=== PATIENT | female | born 1960 | race Caucasian/White ===

== ENCOUNTER 2018-08-16 20:45 | Emergency (ER) | payer BC ==
[2018-08-16 21:04] VITALS: BP 131/74
[2018-08-16] MEDS ORDERED: Lidocaine 2% W/EPI 1:100,000* 20 ML MDV INJ ONE (21:06)
--- NOTE | 2018-08-16 21:33 | UC ---
Laceration HPI - HPI Summary HPI Summary: Was slicing onions this evening and cut left 5th finger. Will not stop bleeding. - History Of Current Complaint Chief Complaint: UCLaceration Stated Complaint: LACERATION LEFT PINKY Time Seen by Provider: 08/16/18 20:58 Hx Obtained From: Patient Laceration Location: Finger - left 5th Mechanism Of Injury: Sharp Trauma Onset/Duration: Sudden Onset Severity: Mild Pain Intensity: 1 Hands: 1 - 0.6 cm laceration Related History: Dominant Hand Right - Allergies/Home Medications Allergies/Adverse Reactions: Allergies Allergy/AdvReac Type Severity Reaction Status Date / Time codeine Allergy Unknown Verified 05/21/18 12:48 Reaction Details PMH/Surg Hx/FS Hx/Imm Hx Endocrine History: Dyslipidemia GI/ History: Gastroesophageal Reflux Psychological History: Anxiety - Surgical History Surgical History: None - Family History Known Family History: Positive: Hypertension - Social History Occupation: Employed Full-time Lives: With Family Alcohol Use: None Substance Use Type: None Smoking Status (MU): Never Smoked Tobacco - Immunization History Most Recent Tetanus Shot: 03/2018 Review of Systems All Other Systems Reviewed And Are Negative: Yes Skin: Positive: Other - laceration Physical Exam Triage Information Reviewed: Yes Appearance: Well-Appearing, No Pain Distress, Well-Nourished Vital Signs: Initial Vital Signs Temp 97.4 F 08/16/18 20:58 Pulse 72 08/16/18 20:58 Resp 16 08/16/18 20:58 BP 131/74 08/16/18 20:58 Pulse Ox 99 08/16/18 20:58 Vital Signs Reviewed: Yes Eyes: Positive: Conjunctiva Clear Neck exam: Normal Respiratory Exam: Normal Cardiovascular Exam: Normal Musculoskeletal Exam: Normal Neurological Exam: Normal Psychological Exam: Normal Skin Exam: Normal Laceration Repair - Laceration Repair 1 Description: Linear Laceration Size After Repair: Length (cm) - 0.6 cm Modified For Repair: No Type Injection: Local Anesthesia Used: 2.0% Lido Additive Used (in ml): Epi Cleansing Completed Via Routine Prep: Yes Irrigation With Pressure Irrigation Device: Yes Closure Material: Sutures Closure Method: Single Layer Suture Of: Skin - #2 figure of 8 Suture Type: Nylon - 4-0 Laceration Course/Dx - Differential Dx - Laceration/Wound Differental Diagnoses: Abrasion, Avulsion, Dehiscence, Laceration - Diagnosis Provider Diagnosis: Laceration of left little finger Discharge - Sign-Out/Discharge Documenting (check all that apply): Patient Departure All imaging exams completed and their final reports reviewed: No Studies - Discharge Plan Condition: Stable Disposition: HOME Patient Education Materials: Care For Your Stitches (ED) Referrals: Ramses Parra DO [Primary Care Provider] - If Needed (10 days for suture removal here or at your doctors) - Billing Disposition and Condition Condition: STABLE Disposition: Home
== END 2018-08-16 21:44 | disposition home or self-care (01) ==
LOC: UCCORT 20:45
DX: S61.217A Laceration without foreign body of left little finger without damage to nail, initial encounter (principal); Z88.5 Allergy status to narcotic agent; W45.8XXA Other foreign body or object entering through skin, initial encounter; Y93.89 Activity, other specified; Y92.9 Unspecified place or not applicable
CPT/HCPCS: 12001; 99211; G0463

== ENCOUNTER 2019-09-16 14:13 | Emergency (ER) | payer BC ==
--- OUTSIDE RECORDS SUMMARY | 2019-09-16 14:31 | XMS REPORT | Continuity of Care Document ---
:1960 External Reference #:[id number] Author Name Anita Rodgers MD Address [address] [place] [id number] Care Team Providers Name Role Phone [facility] Care Team Information Cooperative Extension Agent Problems Active Problems Provider Date Hyperlipidemia Ramses Parra DO Onset: 11/05/2013 Irritable bowel syndrome Ramses Parra DO Onset: 11/05/2013 Gastroesophageal reflux disease Ramses Parra DO Onset: 11/05/2013 Generalized anxiety disorder Tulio Ruiz MD Onset: 04/05/2005 Palpitations Amy Del Valle PA Onset: 04/05/2005 Tobacco user Tulio Ruiz MD Onset: 04/05/2005 Iron deficiency anemia Tulio Ruiz MD Onset: 04/05/2005 Allergic asthma without status asthmaticus Tulio Ruiz MD Onset: 2004 Social History Type Date Description Comments Sex Unknown Tobacco Use Start: Unknown End: Former Cigarette Smoker Unknown ETOH Use Consumes 3 glasses of wine per week Tobacco Use Start: Unknown End: Patient is a former smoker Unknown Smoking Status Reviewed: 05/13/18 Patient is a former smoker Exercise Type/Frequency Exercises regularly Allergies, Adverse Reactions, Alerts Active Allergies Reaction Severity Comments Date Codeine Upset Stomach 12/18/2013 Medications Active Medications SIG Qnty Indications Ordering Date Provider Naproxen Sodium 1-2 twice daily R07.89 Anita Rodgers, 08/31/2019 220mg for 5 days then as MD Tablets needed Pravastatin Sodium take one tablet by 90tabs Ramses Parra, 03/02/2019 40mg mouth at bedtime DO Tablets Lorazepam 1 by mouth up to 30tabs Ramses Parra, 04/22/2017 0.5mg Tablets twice a day as DO needed anxiety Pantoprazole Sodium 1 by mouth bid 60tabs K21.9 Ramses Parra, 04/17/[address] Silva insert 1 tablet 8tabs Ramses Parra, 03/21/2016 10mcg Tablets vaginally 2x a DO week Ventolin HFA 2 puffs every 4 1units Ramses Parra, 11/24/2015 hours as needed DO 108(90Base) mcg/Act Aerosol Sertraline HCL 1 1/2 by mouth 45tabs Ramses Parra, 07/31/2012 50mg every day DO Tablets Immunizations CPT Code Status Date Vaccine Reaction Lot # [id number] Given 05/08/2018 Flu Vaccine NOS 02129 Given 03/20/2018 Tdap (Adacel) Ages 7 And Im inj completed, Pt [id number] Above Only tolerated well 27211 Given 04/14/2007 Afluria Or Fluvirin Flu Vac Intramuscular 53205 Refused 08/31/2019 Influenza Virus Vaccine,Quadrivalent,Split,Preserv Free, 0.5mL,Im Vital Signs Date Vital Result Comment 08/31/2019 1:07pm Body Temperature 99.1 F Weight 160.00 lb Heart Rate 88 /min BP Systolic 150 mmHg BP Diastolic 90 mmHg Respiratory Rate 18 /min Height 63.5 inches 5'3.50" O2 % BldC Oximetry 98 % Ra BMI (Body Mass Index) 27.9 kg/m2 04/28/2019 10:49am Weight 167.00 lb Heart Rate 70 /min BP Systolic 120 mmHg BP Diastolic 72 mmHg Respiratory Rate 18 /min Height 63.5 inches 5'3.50" BMI (Body Mass Index) 29.1 kg/m2 Results Description No Information Available Procedures Date Code Description Status 08/31/2019 84721 Measure Blood Oxygen Level Single Determination Completed 04/01/2018 72658799 Mammogram Completed 06/15/2016 13022464 Colonoscopy Completed 01/28/2015 42391022 Mammogram Completed Medical Devices Description No Information Available Encounters Description No Information Available Assessments Date Code Description Provider 08/31/2019 R07.89 Other chest pain Anita Rodgers MD 08/31/2019 J45.909 Allergic asthma without status asthmaticus Anita Rodgers MD 08/31/2019 Z68.27 Body mass index (BMI) 27.0-27.9, adult Anita Rodgers MD 04/28/2019 Z01.419 Encounter for gynecological examination Corrine Jacobs PA (general) (routine) without abnormal findings 04/28/2019 Z12.31 Encounter for screening mammogram for Corrine Jacobs PA malignant neoplasm of breast 04/28/2019 Z68.29 Body mass index (BMI) 29.0-29.9, adult Corrine Jacobs PA Plan of Treatment Future Appointment(s):04/29/2020 10:00 am - Corrine Jacobs PA at [facility]2019 10:00 am - Ramses Parra DO at [facility]08/31/2019 - Anita Rodgers MDR07.89 Other chest painNew Medication:Naproxen Sodium 220 mg - 1-2 twice daily for 5 days then as neededComments:do not suspect this is cardiac. suspect this is soft tissue pain vs costochondritis. She was givenprescription Aleve for her pain 1-2 BID for 5 days and then on an as needed basis for her chest pain. please call if not improvingFollow up:Chest x-ray today Follow up as scheduled Dr. Parra.J45.909 Allergic asthma without status asthmaticusComments:We will order chest x-ray to evaluate for pneumonia or other skeletal problem. Suspect this is probably a costochondritis. do not suspect asthma exacerbation but she is encouraged to use her inhalerif needed as use of the inhaler provides some relief.Z68.27 Body mass index (BMI) 27.0-27.9, adult Functional Status Description No Information Available Mental Status Description No Information Available Referrals Description No Information Available
[2019-09-16 14:42] VITALS: BP 133/80
--- NOTE | 2019-09-16 14:54 | UC ---
Throat Pain/Nasal Sean HPI - HPI Summary HPI Summary: 59 y/o female presents to the urgent care c/o intermittent right ear pain, sore throat and URI symptoms for the past 2 weeks. Pt reports mild cough in the morning, Then sinus congestion w/ yellowish PND. She has taken OTD medications w/o any improvement. Yesterday RT ear pain and sore throat worsen. Pain is 8/10 on RT ear. Pt denies fever, dizziness, SOB, chest pain, abdominal pain, N/V/D. - History of Current Complaint Chief Complaint: UCRespiratory Stated Complaint: EARACHE,SORE THROAT, CONGESTION Time Seen by Provider: 09/16/19 14:53 Hx Obtained From: Patient Hx Last Menstrual Period: ~7yrs ?: No Onset/Duration: Gradual Onset, Lasting Weeks - 2 weeks, Still Present Severity: Moderate Pain Intensity: 8 Pain Scale Used: 0-10 Numeric Cough: Nonproductive Associated Signs & Symptoms: Positive: Sinus Discomfort, Nasal Discharge - yellowish. Negative: Dysphagia, Wheezing, Fever, Vomiting - Epiglottits Risk Factors Epiglottis Risk Factors: Negative - Allergies/Home Medications Allergies/Adverse Reactions: Allergies Allergy/AdvReac Type Severity Reaction Status Date / Time codeine Allergy Unknown Verified 09/16/19 14:42 Reaction Details Home Medications: Home Medications Estradiol [Yuvafem] 10 mcg VA .TWICE WEEKLY 05/21/18 [History Confirmed 09/16/19 ] Pantoprazole Sodium 40 mg PO BID PRN 05/21/18 [History Confirmed 09/16/19] Pravastatin Sodium 40 mg PO QAM 05/21/18 [History Confirmed 09/16/19] Sertraline HCl [Zoloft] 50 mg PO QAM 05/21/18 [History Confirmed 09/16/19] Amoxicillin PO (*) [Amoxicillin 875 MG (*)] 875 mg PO BID #20 tab 09/16/19 [Rx] Fluticasone NASAL SPRAY 50MCG* [Flonase NASAL SPRAY 50MCG*] 2 spray BOTH NARES DAILY #1 btl 09/16/19 [Rx] PMH/Surg Hx/FS Hx/Imm Hx Previously Healthy: Yes Endocrine History: Dyslipidemia - Surgical History Surgical History: Yes Surgery Procedure, Year, and Place: cholecystectomy 2003- - Family History Known Family History: Positive: Cardiac Disease, Hypertension Family History: dyslipidemia - Social History Occupation: Employed Full-time Lives: With Family Alcohol Use: Weekly Alcohol Amount: 3 Substance Use Type: None Smoking Status (MU): Former Smoker - Immunization History Most Recent Tetanus Shot: 03/2018 Review of Systems All Other Systems Reviewed And Are Negative: Yes Constitutional: Positive: Negative Skin: Positive: Negative Eyes: Positive: Negative ENT: Positive: Sore Throat, Ear Ache - RT ear pain, Nasal Discharge - yellowish , Sinus Congestion, Sinus Pain/Tenderness, Other - moderate PND Respiratory: Positive: Cough - dry Cardiovascular: Positive: Negative Gastrointestinal: Positive: Negative Genitourinary: Positive: Negative Motor: Positive: Negative Neurovascular: Positive: Negative Musculoskeletal: Positive: Negative Neurological/Mental Status: Positive: Headache Psychological: Positive: Negative Is Patient Immunocompromised?: No Physical Exam - Summary Physical Exam Summary: Vital signs: reviewed General: well developed, well nourished female sitting in the examining table w/ o any apparent distress Skin: Magness, warm and dry, no evidence of atopic dermatitis, psoriasis, seborrhea. HEENT: -Head: atraumatic, non tender; no scalp dermatitis. -Eyes: sclera and conjunctiva clear, PERRLA, EOMI Ears: no pre- or postauricular lymphadenopathy or erythema; B/L external ear canal clears, RT TM injected w/ erythema and yellowish drainage, LF TM WNL.with erythema and yellowish purulent discharge, No perforation. -Nose/Face: erythematous and edematous nasal mucosa with yellowish rhinorrhea, positive frontal or maxillary sinus tender to palpation. Yellowish moderate PND -Mouth/Throat: Mucous membrane moist, posterior pharynx clear, no erythema or exudates. Neck: supple, FROM, nontender, no lymphadenopathy, no meningismus. Chest: Clear to auscultation, normal breath sounds Abd: soft, Bowel sounds active, Nontender. Back: no spinal or CVAT Neuro: A&O x4, GCS 15, no focal neuro deficits, normal behavior for age. Triage Information Reviewed: Yes Vital Signs: Initial Vital Signs Temp 98.5 F 09/16/19 14:36 Pulse 87 09/16/19 14:36 Resp 18 09/16/19 14:36 BP 133/80 09/16/19 14:36 Pulse Ox 96 09/16/19 14:36 Throat Pain/Nasal Course/Dx - Course Course Of Treatment: 59 y/o female presents to the urgent care c/o intermittent right ear pain, sore throat and URI symptoms for the past 2 weeks. Pt reports mild cough in the morning, Then sinus congestion w/ yellowish PND. She has taken OTD medications w/o any improvement. Yesterday RT ear pain and sore throat worsen. Pain is 8/10 in Rt ear. Pt denies fever, dizziness, SOB, chest pain, abdominal pain, N/V/D. Hx obtained. Pt w/ acute bacterial sinusitis and RT otitis media. Rapid strep: negative. Pt with 2 weeks of symptoms getting worse. Pt Rx Amoxicillin PO and flonase nasal spray. Discharge instructions explained to Pt. Advised to Return to the clinic or PCP if symptoms do not improve.Pt understood and agreed with plan of care. - Differential Dx/Diagnosis Differential Diagnosis/HQI/PQRI: Influenza, Laryngitis, Otitis Media, Pharyngitis, Sinusitis, URI Provider Diagnosis: Acute bacterial sinusitis, Right otitis media Discharge ED - Sign-Out/Discharge Documenting (check all that apply): Patient Departure - D/C home All imaging exams completed and their final reports reviewed: No Studies - Discharge Plan Condition: Stable Disposition: HOME Prescriptions: Amoxicillin PO (*) [Amoxicillin 875 MG (*)] 875 mg PO BID #20 tab Fluticasone NASAL SPRAY 50MCG* [Flonase NASAL SPRAY 50MCG*] 2 spray BOTH NARES DAILY #1 btl Patient Education Materials: Sinusitis (ED), Ear Infection (ED) Referrals: Ramses Parra DO [Primary Care Provider] - 3 Days Additional Instructions: 1- Please increase fluid intake and rest. take full course of antibiotics to avoid resistance. Take yogurts w/ probiotics or Culturelle to protect your GI system 2-Use Flonase as directed to help drain fluid. Also buy saline drops to clear sinuses 3-Continue taking Ibuprofen PO q6-8hrs prn to alleviates ear pain and sore throat 4-Please f/u w/ your PCP in 3 days if symptoms do not improve for further management and treatment - Billing Disposition and Condition Condition: STABLE Disposition: Home - Attestation Statements Provider Attestation: This patient was not seen by me. I was available for consult. Chart reviewed. LÓPEZ
== END 2019-09-16 15:14 | disposition home or self-care (01) ==
LOC: UCCORT 14:13
DX: H66.91 Otitis media, unspecified, right ear (principal); J01.80 Other acute sinusitis; B96.89 Other specified bacterial agents as the cause of diseases classified elsewhere; Z87.891 Personal history of nicotine dependence; Z88.5 Allergy status to narcotic agent
CPT/HCPCS: 87651; 99212; G0463